=== PATIENT | female | born 1980 | race American Indian/Alaskan Native ===

== ENCOUNTER 2016-12-11 14:21 | Emergency (ER) | payer OTHER ==
[2016-12-11 15:18] VITALS: BP 129/91
[2016-12-11 16:14] LABS: Alanine Aminotransferase 13 units/L (7-56); Albumin 3.9 g/dL (3.9-5); Alkaline Phosphatase 70 units/L (35-129); Anion Gap 17 mmol/L; BUN/Creatinine Ratio 12.85; Blood Urea Nitrogen 9 mg/dL (7-17); Calcium 8.9 mg/dL (8.4-10.2); Carbon Dioxide 25 mmol/L (22-30); Chloride 101.6 mmol/L (98-107); Glucose 91 mg/dL (65-100); Lipase 26 units/L (13-60); Potassium 4.1 mmol/L (3.6-5.0); Sodium 139 mmol/L (137-145); Total Protein 7.9 g/dL (6.3-8.2)
[2016-12-11 16:27] LABS: Basophils % (Auto) 0.4 % (0.0-1.8); Eosinophils % (Auto) 0.9 % (0.0-4.3); Hematocrit 36.2 % (30.3-42.9); Hemoglobin 11.2 gm/dl (10.1-14.3); Mean Corpuscular HGB Conc 31 % (30-34); Mean Corpuscular Volume 81 fl (79-97); Platelet Count 267 K/mm3 (140-440); Red Blood Count 4.47 M/mm3 (3.65-5.03); Red Cell Distribution Width 17.3 % (13.2-15.2); White Blood Count 13.5 K/mm3 (4.5-11.0)
--- NOTE | 2016-12-11 16:38 | Emergency Department Report ---
Entered by GRABIEL RODRIGUEZ, acting as scribe for ROLANDO LU PA. Chief Complaint: Abdominal Pain Stated Complaint: ABD PAIN Time Seen by Provider: 12/11/16 16:13 - HPI History of Present Illness: 36 y/o female presents c/o abd pain that started 3 days ago. Sx include fever but pt denies N/V, dysuria and chills. LMP 11/18/16. - ROS Review of Systems: as noted in HPI - Exam Vital Signs: Vital Signs 12/11/16 15:15 Temperature 98.9 F Pulse Rate 120 H Respiratory 16 Rate Blood Pressure 129/91 O2 Sat by Pulse 100 Oximetry Physical Exam: General: 36 y/o female in no acute distress. Well-developed, well-nourished. CV: Regular rate and rhythm. No murmurs rubs or gallops. Lungs: Clear to auscultation bilaterally. Abdomen: No tenderness to palpation. No guarding or rebound tenderness. Normal bowel sounds. Mini Neuro: Alert and oriented 3. MSE screening note: Focused history and physical exam performed. Due to findings the following was ordered: ED Disposition for MSE Condition: Stable Instructions: Abdominal Pain (ED) This documentation as recorded by the scribe,GRABIEL RODRIGUEZ,accurately reflects the service I personally performed and the decisions made by me,ROLANDO LU PA.
[2016-12-11 16:43] LABS: Mean Corpuscular Hemoglobin 25 pg (28-32)
[2016-12-11 17:04] LABS: Bilirubin,Urine NEG (Negative); Blood,Urine SM (Negative); Ketones,Urine NEG (Negative); Leukocyte Esterase,Urine NEG (Negative); Mucus,Urine 3+ /HPF; Nitrite,Urine NEG (Negative); Urobilinogen,Urine < 2.0 mg/dL (<2.0)
--- NOTE | 2016-12-14 15:28 | ED Elopement Review ---
ED Pt Elopement review - Results review Lab results: Laboratory Tests 12/11/16 12/11/16 12/11/16 15:40 15:40 16:30 WBC 13.5 H RBC 4.47 Hgb 11.2 Hct 36.2 MCV 81 MCH 25 L MCHC 31 RDW 17.3 H Plt Count 267 Lymph % (Auto) 11.8 L [place] % (Auto) 6.0 Eos % (Auto) 0.9 Baso % (Auto) 0.4 Lymph # 1.6 [place] # 0.8 Eos # 0.1 Baso # 0.1 Seg Neutrophils % 80.9 H Seg Neutrophils # 10.9 H Sodium 139 Potassium 4.1 Chloride 101.6 Carbon Dioxide 25 Anion Gap 17 BUN 9 Creatinine 0.7 Estimated GFR > 60 BUN/Creatinine Ratio 12.85 Glucose 91 Calcium 8.9 Total Bilirubin 0.70 AST 19 ALT 13 Alkaline Phosphatase 70 Total Protein 7.9 Albumin 3.9 Albumin/Globulin Ratio 1.0 Lipase 26 Urine Color Yellow Urine Turbidity Clear Urine pH 5.0 Ur Specific Pavilion 1.021 Urine Protein 30 mg/dl Urine Glucose (UA) Neg Urine Ketones Neg Urine Blood Sm Urine Nitrite Neg Urine Bilirubin Neg Urine Urobilinogen < 2.0 Ur Leukocyte Esterase Neg Urine WBC (Auto) 1.0 Urine RBC (Auto) 4.0 U Epithel Cells (Auto) 1.0 Urine Mucus 3+ - Call Back decision Pt Call Back Decision: No action required
== END 2016-12-11 20:40 | disposition left against medical advice (07) ==
LOC: ED 14:21
DX: R10.9 Unspecified abdominal pain (principal); Z53.21 Procedure and treatment not carried out due to patient leaving prior to being seen by health care provider
CPT/HCPCS: 36415; 80053; 81001; 83690; 85025

== ENCOUNTER 2018-01-02 08:10 | Emergency (ER) | payer SELFPAY ==
[2018-01-02 08:14] VITALS: BP 111/82
--- NOTE | 2018-01-02 08:43 | Emergency Department Report ---
ED ENT HPI - General Chief complaint: Sore Throat Stated complaint: SORE THROAT Time Seen by Provider: 01/02/18 08:16 Source: patient Mode of arrival: Ambulatory Limitations: No Limitations - History of Present Illness Initial comments: This is a 37-year-old female nontoxic, well nourished in appearance, no acute signs of distress presents to the ED with c/o of sore throat. Patient describes sore throat as swallowing razer blades. Patient denies any fever, chills, headache, stiff neck, nausea, vomiting, chest pain, shortness of breath, numbness or tingling. Patient denies any drooling or hoarseness. Patient denies any allergies or significant past medical history. MD complaint: sore throat -: days(s) (3) Location: throat Severity: mild Severity scale (0 -10): 8 Consistency: constant Improves with: none Worsens with: swallowing Associated Symptoms: pain with swallowing, sore throat. denies: fever, cough, gum swelling, toothache, tinnitus, hearing loss, discharge from ear, rhinorrhea - Related Data Previous Rx's Medication Instructions Recorded Last Taken Type ALBUTEROL Inhaler [ProAir HFA 2 puff IH QID PRN #1 inhalation 07/03/14 Unknown Rx Inhaler] Codeine Phosphate/Guaifenesin 10 ml PO TID #1 bottle 07/03/14 Unknown Rx [Guaifenesin-Codeine Syrup] Fluticasone [Flonase] 1 spray NS QDAY #1 bottle 07/03/14 Unknown Rx Naproxen [Naprosyn TAB] 500 mg PO BID #30 tablet 07/03/14 Unknown Rx Amoxicillin [Amoxicillin TAB] 875 mg PO BID #20 tablet 01/02/18 Unknown Rx Ibuprofen [Motrin] 600 mg PO Q8H PRN #30 tablet 01/02/18 Unknown Rx Nystas/Diphen/Xyl Visc/Mylanta 15 ml MM Q6H PRN 5 Days ml 01/02/18 Unknown Rx [Magic Mouthwash] Allergies Allergy/AdvReac Type Severity Reaction Status Date / Time No Known Allergies Allergy Verified 01/02/18 08:11 ED Dental HPI - General Chief complaint: Sore Throat Stated complaint: SORE THROAT Time Seen by Provider: 01/02/18 08:16 Source: patient Mode of arrival: Ambulatory Limitations: No Limitations - Related Data Previous Rx's Medication Instructions Recorded Last Taken Type ALBUTEROL Inhaler [ProAir HFA 2 puff IH QID PRN #1 inhalation 07/03/14 Unknown Rx Inhaler] Codeine Phosphate/Guaifenesin 10 ml PO TID #1 bottle 07/03/14 Unknown Rx [Guaifenesin-Codeine Syrup] Fluticasone [Flonase] 1 spray NS QDAY #1 bottle 07/03/14 Unknown Rx Naproxen [Naprosyn TAB] 500 mg PO BID #30 tablet 07/03/14 Unknown Rx Amoxicillin [Amoxicillin TAB] 875 mg PO BID #20 tablet 01/02/18 Unknown Rx Ibuprofen [Motrin] 600 mg PO Q8H PRN #30 tablet 01/02/18 Unknown Rx Nystas/Diphen/Xyl Visc/Mylanta 15 ml MM Q6H PRN 5 Days ml 01/02/18 Unknown Rx [Magic Mouthwash] Allergies Allergy/AdvReac Type Severity Reaction Status Date / Time No Known Allergies Allergy Verified 01/02/18 08:11 ED Review of Systems ROS: Stated complaint: SORE THROAT Other details as noted in HPI Constitutional: denies: chills, fever Eyes: denies: eye pain, eye discharge, vision change ENT: throat pain. denies: ear pain Respiratory: denies: cough, shortness of breath, wheezing Cardiovascular: denies: chest pain, palpitations Endocrine: no symptoms reported Gastrointestinal: denies: abdominal pain, nausea, diarrhea Genitourinary: denies: urgency, dysuria, discharge Musculoskeletal: denies: back pain, joint swelling, arthralgia Skin: denies: rash, lesions Neurological: denies: headache, weakness, paresthesias Psychiatric: denies: anxiety, depression Hematological/Lymphatic: denies: easy bleeding, easy bruising ED Past Medical Hx - Past Medical History Previous Medical History?: No - Surgical History Additional Surgical History: oral/dental, c/s - Social History Smoking Status: Never Smoker Substance Use Type: None - Medications Home Medications: Home Medications Medication Instructions Recorded Confirmed Last Taken Type ALBUTEROL Inhaler [ProAir HFA 2 puff IH QID PRN #1 inhalation 07/03/14 Unknown Rx Inhaler] Codeine Phosphate/Guaifenesin 10 ml PO TID #1 bottle 07/03/14 Unknown Rx [Guaifenesin-Codeine Syrup] Fluticasone [Flonase] 1 spray NS QDAY #1 bottle 07/03/14 Unknown Rx Naproxen [Naprosyn TAB] 500 mg PO BID #30 tablet 07/03/14 Unknown Rx Amoxicillin [Amoxicillin TAB] 875 mg PO BID #20 tablet 01/02/18 Unknown Rx Ibuprofen [Motrin] 600 mg PO Q8H PRN #30 tablet 01/02/18 Unknown Rx Nystas/Diphen/Xyl Visc/Mylanta 15 ml MM Q6H PRN 5 Days ml 01/02/18 Unknown Rx [Magic Mouthwash] ED Physical Exam - General Limitations: No Limitations General appearance: alert, in no apparent distress - Head Head exam: Present: atraumatic, normocephalic - Eye Eye exam: Present: normal appearance Pupils: Present: normal accommodation - ENT ENT exam: Present: mucous membranes moist, TM's normal bilaterally, normal external ear exam - Expanded ENT Exam Expanded Ear exam: Present: normal external inspection Mouth exam: Present: normal external inspection, tongue normal. Absent: drooling, trismus, muffled voice, tongue elevation, laceration Teeth exam: Present: normal inspection Throat exam: Positive: tonsillar erythema, tonsillomegaly (2+), other (Uvula midline. No abscess or swelling noted. ). Negative: tonsillar exudate, R peritonsillar mass, L peritonsillar mass - Neck Neck exam: Present: normal inspection, full ROM, lymphadenopathy (bilateral tonsillar). Absent: tenderness, meningismus - Respiratory Respiratory exam: Present: normal lung sounds bilaterally. Absent: respiratory distress, wheezes, rales, rhonchi, stridor, chest wall tenderness, accessory muscle use, decreased breath sounds, prolonged expiratory - Cardiovascular Cardiovascular Exam: Present: regular rate, normal rhythm, normal heart sounds. Absent: bradycardia, tachycardia, irregular rhythm, systolic murmur, diastolic murmur, rubs, gallop - GI/Abdominal GI/Abdominal exam: Present: soft, normal bowel sounds - Rectal Rectal exam: Present: deferred - Extremities Exam Extremities exam: Present: normal inspection, full ROM, normal capillary refill - Back Exam Back exam: Present: normal inspection, full ROM - Neurological Exam Neurological exam: Present: alert, oriented X3, normal gait - Psychiatric Psychiatric exam: Present: normal affect, normal mood - Skin Skin exam: Present: warm, dry, intact, normal color. Absent: rash ED Course Vital Signs 01/02/18 08:11 Temperature 98.2 F Pulse Rate 84 Respiratory 20 Rate Blood Pressure 111/82 O2 Sat by Pulse 99 Oximetry - Reevaluation(s) Reevaluation #1: 01/02/18 08:40 Patient is speaking in full sentences with no signs of distress noted. Critical care attestation.: If time is entered above; I have spent that time in minutes in the direct care of this critically ill patient, excluding procedure time. ED Disposition Clinical Impression: Tonsillitis Disposition: - TO HOME OR SELFCARE Is pt being admited?: No Does the pt Need Aspirin: No Condition: Stable Instructions: Tonsillitis (ED) Additional Instructions: Follow-up with a primary care doctor in 3-5 days or if symptoms worsen and continue return to emergency room as soon as possible. Prescriptions: Amoxicillin [Amoxicillin TAB] 875 mg PO BID #20 tablet Ibuprofen [Motrin] 600 mg PO Q8H PRN #30 tablet PRN Reason: Pain Nystas/Diphen/Xyl Visc/Mylanta [Magic Mouthwash] 15 ml MM Q6H PRN 5 Days ml PRN Reason: Sore Throat Referrals: PRIMARY CAREMD [Referring] - 3-5 Days SHANTEL PRABHAKAR MD [Staff Physician] - 3-5 Days [facility] [Outside] - 3-5 Days [facility] [Outside] - 3-5 Days Forms: Work/School Release Form(ED)
== END 2018-01-02 08:53 | disposition home or self-care (01) ==
LOC: ED 08:10
DX: J03.90 Acute tonsillitis, unspecified (principal)
CPT/HCPCS: 99282

== ENCOUNTER 2021-07-17 19:46 | Emergency (ER) | payer BC ==
[2021-07-17] MEDS ORDERED: LIDOCAINE PF 100 MG/5 ML (CARDIAC SYRINGE) IV ONE (20:48)
[2021-07-17] MEDS ORDERED: dexAMETHasone 20 MG/5 ML VIAL IM ONE (21:22)
[2021-07-17] MEDS ORDERED: KETOROLAC 60 MG/2 ML INJ IM ONE (21:23)
[2021-07-17] MEDS ORDERED: LIDOCAINE VISCOUS 2% 15 ML ORAL LIQD PO ONE (21:23)
--- NOTE | 2021-07-17 21:45 | Emergency Department Report ---
ED General Adult HPI - General Chief complaint: Sore Throat Stated complaint: NAUSEA, HEADACHE, SORE THROAT Source: patient Mode of arrival: Ambulatory Limitations: No Limitations - History of Present Illness Initial comments: Patient is a 41-year-old -[place] female with no past medical history presents to the ED with complaint of acute onset persistent severe sore throat with dysphagia, hoarseness, persistent headache and body aches for the last 3 days. Patient states that she has not been able to swallow anything including water because of worsening sore throat. Patient states that she had similar symptoms about 3 months ago and was diagnosed with tonsillitis due to streptococcal infection. Patient denies dizziness, syncope, fever, chills, nausea, vomiting, chest pain, shortness of breath, nasal and sinus congestion or cough, abdominal pain, back pain or palpitations. MD Complaint: Severe sore throat; dysphagia; headache -: Sudden, days(s) (3) Location: mouth Radiation: non-radiation Severity scale (0 -10): 6 Quality: aching, sharp Consistency: constant Improves with: none Worsens with: eating Associated Symptoms: denies other symptoms, headaches, loss of appetite. denies: confusion, chest pain, cough, diaphoresis, fever/chills, malaise, nausea/vomiting, rash, seizure, shortness of breath, syncope, weakness, other Treatments Prior to Arrival: none - Related Data Previous Rx's Medication Instructions Recorded Last Taken Type Albuterol Mdi (or & Nicu Only) 2 puff IH QID PRN #1 inhalation 07/03/14 Unknown Rx [ProAir HFA Inhaler] Codeine Phosphate/Guaifenesin 10 ml PO TID #1 bottle 07/03/14 Unknown Rx [Guaifenesin-Codeine Syrup] Fluticasone [Flonase] 1 spray NS QDAY #1 bottle 07/03/14 Unknown Rx Naproxen [Naprosyn TAB] 500 mg PO BID #30 tablet 07/03/14 Unknown Rx Amoxicillin [Amoxicillin TAB] 875 mg PO BID #20 tablet 01/02/18 Unknown Rx Ibuprofen [Motrin] 600 mg PO Q8H PRN #30 tablet 01/02/18 Unknown Rx Nystas/Diphen/Xyl Visc/Mylanta 15 ml MM Q6H PRN 5 Days ml 01/02/18 Unknown Rx [Magic Mouthwash] Azithromycin [Zithromax Z-EDILMA] 250 mg PO DAILY #6 tablet 07/17/21 Unknown Rx Ibuprofen [Motrin] 800 mg PO Q8HR PRN #30 tablet 07/17/21 Unknown Rx Lidocaine Viscous 2% 10 ml PO Q6H PRN #120 ml 07/17/21 Unknown Rx predniSONE [Deltasone] 40 mg PO QDAY #10 tab 07/17/21 Unknown Rx Allergies Allergy/AdvReac Type Severity Reaction Status Date / Time No Known Allergies Allergy Verified 01/02/18 08:11 ED Review of Systems ROS: Stated complaint: NAUSEA, HEADACHE, SORE THROAT Other details as noted in HPI Constitutional: denies: chills, fever Eyes: denies: eye pain, eye discharge, vision change ENT: throat pain (Sore throat), other (Hoarseness). denies: ear pain Respiratory: denies: cough, shortness of breath, wheezing Cardiovascular: denies: chest pain, palpitations Endocrine: no symptoms reported Gastrointestinal: denies: abdominal pain, nausea, diarrhea Genitourinary: denies: urgency, dysuria, discharge Musculoskeletal: myalgia. denies: back pain, joint swelling, arthralgia Skin: denies: rash, lesions Neurological: headache. denies: weakness, paresthesias Psychiatric: denies: anxiety, depression Hematological/Lymphatic: denies: easy bleeding, easy bruising ED Past Medical Hx - Past Medical History Additional medical history: PE - Surgical History Hx Cholecystectomy: Yes Additional Surgical History: oral/dental, c/s, TUBAL - Social History Smoking Status: Unknown if ever smoked Substance Use Type: None - Medications Home Medications: Home Medications Medication Instructions Recorded Confirmed Last Taken Type Albuterol Mdi (or & Nicu Only) 2 puff IH QID PRN #1 inhalation 07/03/14 Unknown Rx [ProAir HFA Inhaler] Codeine Phosphate/Guaifenesin 10 ml PO TID #1 bottle 07/03/14 Unknown Rx [Guaifenesin-Codeine Syrup] Fluticasone [Flonase] 1 spray NS QDAY #1 bottle 07/03/14 Unknown Rx Naproxen [Naprosyn TAB] 500 mg PO BID #30 tablet 07/03/14 Unknown Rx Amoxicillin [Amoxicillin TAB] 875 mg PO BID #20 tablet 05/23/18 Unknown Rx Ibuprofen [Motrin] 600 mg PO Q8H PRN #30 tablet 01/02/18 Unknown Rx Nystas/Diphen/Xyl Visc/Mylanta 15 ml MM Q6H PRN 5 Days ml 01/02/18 Unknown Rx [Magic Mouthwash] Azithromycin [Zithromax Z-EDILMA] 250 mg PO DAILY #6 tablet 07/17/21 Unknown Rx Ibuprofen [Motrin] 800 mg PO Q8HR PRN #30 tablet 07/17/21 Unknown Rx Lidocaine Viscous 2% 10 ml PO Q6H PRN #120 ml 07/17/21 Unknown Rx predniSONE [Deltasone] 40 mg PO QDAY #10 tab 07/17/21 Unknown Rx ED Physical Exam - General Limitations: No Limitations General appearance: alert, in no apparent distress - Head Head exam: Present: atraumatic, normocephalic, normal inspection - Eye Eye exam: Present: normal appearance, PERRL, EOMI Pupils: Present: normal accommodation - ENT ENT exam: Present: mucous membranes moist, TM's normal bilaterally, normal external ear exam, other (Erythematous oropharynx and tonsils; no tonsillar exudate or swelling) - Neck Neck exam: Present: normal inspection, full ROM, lymphadenopathy (Tender bilateral anterior cervical lymphadenopathy). Absent: tenderness - Respiratory Respiratory exam: Present: normal lung sounds bilaterally. Absent: respiratory distress, wheezes, rhonchi, chest wall tenderness, accessory muscle use, decreased breath sounds, prolonged expiratory - Cardiovascular Cardiovascular Exam: Present: regular rate, normal rhythm, normal heart sounds. Absent: systolic murmur, diastolic murmur, rubs, gallop - GI/Abdominal GI/Abdominal exam: Present: soft, normal bowel sounds. Absent: distended, tenderness, guarding, rebound, organomegaly - Extremities Exam Extremities exam: Present: normal inspection, full ROM, normal capillary refill - Back Exam Back exam: Present: normal inspection, full ROM. Absent: tenderness, CVA tenderness (R), CVA tenderness (L), muscle spasm, paraspinal tenderness, vertebral tenderness - Neurological Exam Neurological exam: Present: alert, oriented X3, CN II-XII intact, normal gait, reflexes normal - Psychiatric Psychiatric exam: Present: normal affect, normal mood - Skin Skin exam: Present: warm, dry, intact, normal color. Absent: rash ED Course Vital Signs 07/17/21 20:06 Temperature 98.0 F Pulse Rate 85 Respiratory 18 Rate Blood Pressure 145/95 O2 Sat by Pulse 100 Oximetry ED Medical Decision Making - Medical Decision Making This is a 41-year-old -[place] female with no past medical history presents to the ED with complaint of acute onset persistent severe sore throat with dysphagia, persistent headache and body aches for the last 3 days. Patient states that she has not been able to swallow anything including water because of worsening sore throat. Patient states that she had similar symptoms about 3 months ago and was diagnosed with tonsillitis due to streptococcal infection. In the ED, patient is alert and oriented x3 and is not in any distress. Patient is hemodynamically stable. Patient was treated for pain in the ED and was given Decadron 10 mg IM injection for sore throat and hoarseness. On reevaluation, patient's pain is well controlled medication. Based on the history and physical exam findings, patient symptoms are likely due to streptococcal pharyngitis or tonsillitis. Patient was therefore discharged home on pain medications and empirically discharged home on oral antibiotics for suspected streptococcal pharyngitis or tonsillitis. Patient was advised return to the ED immediately if symptoms get worse, otherwise follow-up with her primary care physician in 7 to 10 days for reevaluation. - Differential Diagnosis Strep pharyngitis; bacterial tonsillitis; viral pharyngitis; laryngitis Critical care attestation.: If time is entered above; I have spent that time in minutes in the direct care of this critically ill patient, excluding procedure time. ED Disposition Clinical Impression: Acute bacterial tonsillitis, Acute laryngitis Acute pharyngitis, unspecified Qualifiers: Pharyngitis/tonsillitis etiology: other specified organisms Qualified Code(s): J02.8 - Acute pharyngitis due to other specified organisms Disposition: 01 HOME / SELF CARE / HOMELESS Is pt being admited?: No Does the pt Need Aspirin: No Condition: Stable Instructions: Laryngitis, [id number], Tonsillitis, [id number], Pharyngitis, [id number], Sore Throat, [id number] Additional Instructions: Your symptoms are likely due to bacterial tonsillitis versus strep pharyngitis or viral laryngitis. Therefore take medication with food, drink plenty of fluids and follow-up with your primary care physician in 7 to 10 days for reevaluation. Return to the ED immediately if his symptoms get worse. Prescriptions: predniSONE [Deltasone] 40 mg PO QDAY #10 tab Lidocaine Viscous 2% 10 ml PO Q6H PRN #120 ml PRN Reason: Sore Throat Ibuprofen [Motrin] 800 mg PO Q8HR PRN #30 tablet PRN Reason: Pain , Severe (7-10) Azithromycin [Zithromax Z-EDILMA] 250 mg PO DAILY #6 tablet Referrals: [facility] [Provider Group] - 7-10 days Forms: Work/School Release Form(ED) Time of Disposition: 21:47 Print Language: INDONESIAN
[2021-07-17 23:16] VITALS: BP 123/92
== END 2021-07-17 23:18 | disposition home or self-care (01) ==
LOC: ED 19:46
DX: J03.90 Acute tonsillitis, unspecified (principal); J04.0 Acute laryngitis
CPT/HCPCS: 96372; 99282; J1100; J1885; J2001